=== PATIENT | female | born 1945 | race African-American/Black ===

== ENCOUNTER 2019-08-05 16:42 | Emergency (ER) | payer MEDICARE ==
[~2019-08-05] VITALS: Ht 162.6 cm; Wt 73.0 kg
[~2019-08-05 16:42] MED LIST: LEVEMIR; LISI5TAB; [UNRECOGNIZED DRUG - CODE]
[2019-08-05] MEDS ORDERED: IBUPROFEN 600MG TABLET PO ONE (17:30)
[2019-08-05] MEDS ORDERED: HYDROCODONE/APAP 7.5/325MG 1 TAB TABLET PO ONE (17:30)
[2019-08-05] MEDS ORDERED: ONDANSETRON 4MG ODT PO ONE (17:30)
[2019-08-05 20:24] VITALS: BP 135/78
== END 2019-08-05 20:25 | disposition home or self-care (01) ==
LOC: ER 16:42
DX: S09.8XXA Other specified injuries of head, initial encounter (principal); V49.49XA Driver injured in collision with other motor vehicles in traffic accident, initial encounter; Y93.89 Activity, other specified; Y92.89 Other specified places as the place of occurrence of the external cause; Y99.8 Other external cause status; E11.9 Type 2 diabetes mellitus without complications; I10 Essential (primary) hypertension; Z88.2 Allergy status to sulfonamides
CPT/HCPCS: 99284; Q0162